=== PATIENT | male | born 1960 | race Caucasian/White ===

== ENCOUNTER 2016-08-07 12:23 | Day surgery (SDC) | payer BC ==
[2016-08-07] MEDS ORDERED: PROPOFOL 10 MG/ML VIAL IV ONE (14:00)
[2016-08-07] MEDS ORDERED: LIDOCAINE 2% MDV (20MG/ML) 20ML VIAL IV ONE (14:00)
[2016-08-07] MEDS ORDERED: MIDAZOLAM HCL 2MG/2ML VIAL IV ONE (14:00)
--- NOTE | 2016-08-12 18:30 | Operative Note ---
DATE OF SURGERY: 08/07/2016 OPERATION: COLONOSCOPY with cold snare polypectomy. PREOPERATIVE DIAGNOSIS: Personal history of colon polyps. POSTOPERATIVE DIAGNOSIS: Ascending colon polyp. PROCEDURE: After informed consent was obtained from the patient, he was placed in the left lateral decubitus position in the endoscopy suite, sedated and monitored by the department of anesthesia. Digital rectal exam was unremarkable. A well-lubricated [id number] colonoscope was inserted into the rectum and advanced to the cecum. Preparation quality was good. The cecum was unremarkable. The ascending colon revealed a 4 mm polyp removed with a cold snare. The remainder of the ascending colon, transverse colon, descending colon, sigmoid colon, and rectum were unremarkable. Forward and J-turn views of the rectum and anorectum were unrevealing. The endoscope was straightened, the rectal ampulla deflated, and the endoscope was removed. RECOMMENDATIONS: The patient should resume his medications and diet. He will require repeat exam in 5 years with a confirmation to be based on tissue histology. As always, thank you for allowing me to participate in the healthcare of your patients. CC: Dr. Myrtle GRAY
== END 2016-08-07 14:38 | disposition home or self-care (01) ==
LOC: HOP 12:23
PROVIDERS: ATTEND Internal Medicine Gastroenterology
DX: Z86.010 Personal history of colon polyps (principal)